=== PATIENT | female | born 1985 | race Caucasian/White ===

== ENCOUNTER 2022-12-22 13:16 | Emergency (ER) | payer OTHER, SELFPAY ==
[2022-12-22 13:21] VITALS: BP 116/83; PULSE 90; RESP 16; TEMP 36.7; O2SAT 98; BMI 39.1
--- NOTE | 2022-12-22 13:39 | ED.BACK1 ---
HPI - Back Pain/Injury General Chief Complaint: Back Pain/Injury Stated Complaint: BACK PAIN Time Seen by Provider: 12/22/22 13:23 Source: patient Mode of arrival: walk-in History of Present Illness HPI Narrative: for 3 months the patient has been experiencing pain in the lower right back. 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 Yesterday she developed a red rash to the right lower back and the pain became more of a burning sensation in the area of the rash, which is a new sensation for her. no fever or chills and no recent URI. She denied any bowel or bladder dysfunction. No lower extremity numbness or tingling. No leg weakness or imbalance. Related Data Previous Rx's Medication Instructions Recorded acyclovir 800 mg tablet 800 mg PO Q4H #35 tabs 12/22/22 nabumetone 750 mg tablet 750 mg PO BID PRN pain #20 tabs 12/22/22 prednisone 20 mg tablet 40 mg PO DAILY 5 days #10 tabs 12/22/22 Allergies Allergy/AdvReac Type Severity Reaction Status Date / Time acetaminophen [From Tylenol] Allergy Severe Verified 12/22/22 13:21 aspirin Allergy Severe Verified 12/22/22 13:21 codeine Allergy Severe Verified 12/22/22 13:21 morphine Allergy Severe Verified 12/22/22 13:21 Exam Narrative Exam Narrative: afebrile General: Alert, no acute distress, patient resting comfortably Skin: warm, intact, no pallor noted. Erythematous rash to the right lower parathoracic soft tissue that is very tender to touch. No vesicles at this time. Head: Normocephalic, atraumatic Eye: Normal conjunctiva Respiratory: No acute distress Back: inspection of the back shows no obvious deformity, no swelling, no ecchymosis, contusion, abrasion, swelling, erythema, fluctuance or induration. Tenderness noted to right parathoracic soft tissue and upper right paralumbar soft tissue. Straight leg raise on left is positive. Straight leg raise on right is negative. No CVA tenderness noted bilaterally. Musculoskeletal: No deformity noted to bilateral lower extremities. no cyanosis or mottling noted. normal pulses at DP and PT 2+ bilaterally and symmetrically. Normal 5/5 strength at ankles with dorsiflexion and plantar flexion. Patient is able to ambulate. Normal sensation noted to both lower extremities. Neurological: AAOx4, normal sensory and motor observed. L5-S1 reflexes intact symmetrically. DTR 2+ at patellar bilaterally. Psychiatric: Cooperative and interactive. Constitutional Vital Signs, click to edit/add: Last Vital Signs Temp 98.0 F 12/22/22 13:21 Pulse 90 12/22/22 13:21 Resp 16 12/22/22 13:21 BP 116/83 12/22/22 13:21 Pulse Ox 98 12/22/22 13:21 O2 Del Method Room Air 12/22/22 13:21 Course Vital Signs Vital signs: Vital Signs Temperature 98.0 F 12/22/22 13:21 Pulse Rate 90 12/22/22 13:21 Respiratory Rate 16 12/22/22 13:21 Blood Pressure 116/83 12/22/22 13:21 Pulse Oximetry 98 12/22/22 13:21 Oxygen Delivery Method Room Air 12/22/22 13:21 Temperature 98.0 F 12/22/22 13:21 Pulse Rate 90 12/22/22 13:21 Respiratory Rate 16 12/22/22 13:21 Blood Pressure 116/83 12/22/22 13:21 Pulse Oximetry 98 12/22/22 13:21 Oxygen Delivery Method Room Air 12/22/22 13:21 MDM - Back Pain/Injury MDM Narrative Medical decision making narrative: the patient has two issues - acute on chronic low back pain from a strain of the musculature of the right lower thoracic and upper right lumbar spine, which is exacerbated by her activity and lifting. Additionally, she is starting to develop a zoster rash which is causing the burning pain she now experiences in the lower right thoracic soft tissue. Patient given IM Toradol and IM Solumedrol in the ED. She was discharged home with prescriptions for acyclovir, relafen and prednisone. She was cautioned regarding exposure to others during patient care. PCP follow up recommended. Discharge Plan Discharge Chief Complaint: Back Pain/Injury Clinical Impression: Strain of thoracic spine, Strain of lumbar region, Herpes zoster Patient Disposition: Home, Self-Care Time of Disposition Decision: 13:50 Prescriptions / Home Meds: New acyclovir 800 mg tablet 800 mg PO Q4H Qty: 35 0RF Rx Instructions: while awake; give 5 doses in 24 hours nabumetone 750 mg tablet 750 mg PO BID PRN (Reason: pain) Qty: 20 0RF prednisone 20 mg tablet 40 mg PO DAILY 5 Days Qty: 10 0RF Instructions: Shingles (ED), Low Back Strain (ED), Back Pain (ED), P.R.I.C.E. Treatment (ED), Lower Back Exercises (ED), Thoracic Back Strain (ED) Stand Alone Forms: Portal Instructions Referrals: Physician,Non-Staff, MD [Primary Care Provider] - 1 week RACHEL MCFARLAND APRN [Physician] - 1 week
[2022-12-22] MEDS: METHYLPREDNISOLONE SOD SUCC PF 125 MG/2 ML VIAL IM (13:47)
[2022-12-22] MEDS: KETOROLAC TROMETHAMINE 60 MG/2 ML VIAL IM (13:47)
== END 2022-12-22 14:05 | disposition home or self-care (01) ==
PROVIDERS: Emergency Provider Emergency Medicine
DX: B02.9 Zoster without complications (principal); S29.012A Strain of muscle and tendon of back wall of thorax, initial encounter; S39.012A Strain of muscle, fascia and tendon of lower back, initial encounter; X50.9XXA Other and unspecified overexertion or strenuous movements or postures, initial encounter
CPT/HCPCS: 96372; 99284; J2930

== ENCOUNTER 2025-03-05 11:58 | Emergency (ER) | payer OTHER, SELFPAY ==
[2025-03-05 12:04] VITALS: BP 130/97; PULSE 79; TEMP 36.6; O2SAT 98; BMI 37.2
--- NOTE | 2025-03-05 12:21 | CT_ITS ---
The [address] [address] Patient Name: SLIME DIAMOND MRN: [id number] date: 1985 Sex: F Assigned Patient Location: ER Current Patient Location: [facility] Accession/Order Number: [id number] Exam Date: 03/05/2025 12:34 Report Date: 03/05/2025 13:16 At the request of: ANA M RUBIN MD Procedure: CT abdomen pelvis wo con CT abdomen pelvis wo con 03/05/2025 12:38 PM SIGNS AND SYMPTOMS: ^RLQ pain, nausea TECHNIQUE: Multidetector ct axial images of the abdomen and pelvis were obtained without IV contrast. Multiplanar reformats were performed and reviewed to further define anatomy and possible pathology. CT was performed with one or more of the following dose reduction techniques: Automated exposure control, adjustment of the mA and/or kV according to patient size, or use of iterative reconstruction technique. COMPARISON: 08/27/2020 FINDINGS: Lower Chest: Within normal limits. ABDOMEN: Liver: Within normal limits. Bile Ducts: Normal caliber. Gallbladder: Previously removed Pancreas: Within normal limits. Spleen: Within normal limits. Adrenals: Within normal limits. Kidneys: Within normal limits. Pelvis: Reproductive Organs: No pelvic masses. Ureters: Within normal limits. Bladder: Within normal limits. Bowel: Normal caliber. There is a normal appendix in the right lower quadrant. Mesenteric Lymph Nodes: No enlarged mesenteric lymph nodes. Peritoneum: No ascites or free air, no fluid collection. Vessels: Atherosclerotic changes are noted in the abdominal aorta. Retroperitoneum: Within normal limits. Abdominal Wall: Within normal limits. Bones: Bilateral L5 pars defects are present with grade 1 spondylolisthesis. Degenerative changes are noted in the thoracic spine. There is a levoconvex curvature of the lumbar spine. Degenerative changes in the sacroiliac joints. CT/CT abdomen pelvis wo con IMPRESSION: No bowel obstruction or obstructive uropathy. There is evidence of prior cholecystectomy. There is a normal appendix in the right lower quadrant. No acute intra-abdominal pathology. Impression dictated by: Baljinder Laguna M.D. 03/05/2025 1:16 PM Dictation Location: [place] [address] Electronically authenticated by: [id number] Y Date: 03/05/2025 13:16
[2025-03-05] MEDS: KETOROLAC TROMETHAMINE 30 MG/ML VIAL 15 MG IVP (12:30)
[2025-03-05 12:33] LABS: Hematocrit 45.2 % (36.0-48.0); Hemoglobin 15.5 g/dL (12.0-16.0); Immature Granulocytes Abs Auto 0.02 10^3/uL (0.00-0.03); Immature Granulocytes Pct Auto 0.2 % (0.0-0.5); Lymphocytes Absolute Auto 3.3 10^3/uL (1.2-3.8); Mean Corpuscular HGB Conc 34.3 g/dL (29.9-35.2); Mean Corpuscular Hemoglobin 30.0 pg (26.7-34.0); Mean Corpuscular Volume 87.6 fL (81.0-99.0); Platelet Count 193 10^3/uL (150-450); Red Blood Count 5.16 10^6/uL (4.20-5.40); White Blood Count 10.1 10^3/uL (4.0-11.0)
[2025-03-05 12:34] LABS: Glucose Urine UA NEGATIVE (NEGATIVE)
[2025-03-05 12:46] LABS: Alanine Aminotransferase 31 U/L (14-59); Albumin Globulin Ratio 1.0; Albumin Level 3.9 g/dL (3.4-5.0); Alkaline Phosphatase 102 U/L (46-116); Anion Gap 15.4; Aspartate Amino Transferase 20 U/L (15-37); Blood Urea Nitrogen 18.0 mg/dL (7.0-18.0); Calcium 9.3 mg/dL (8.5-10.1); Carbon Dioxide 26.7 mmol/L (21.0-32.0); Chloride 104 mmol/L (98-107); Estimated GFR (African America >60 (>=60 mL/min/1.73m^2); Estimated GFR (Non-African Ame >60 (>=60 mL/min/1.73m^2); Globulin 3.8 g/dL; Glucose 98 mg/dL (74-106); Potassium 4.1 mmol/L (3.5-5.1); Sodium 142 mmol/L (136-145); Total Protein 7.7 g/dL (6.4-8.2)
--- NOTE | 2025-03-05 13:53 | ED.ABDPAIN1 ---
HPI - Abdominal Pain General Chief Complaint: Abdominal Pain Stated Complaint: FEVER, SIDE PAIN Time Seen by Provider: 03/05/25 12:17 Source: patient Mode of arrival: walk-in Limitations: no limitations History of Present Illness HPI narrative: The patient presented to the ER with chills as well as right lower quadrant pain associated with some nausea for the last 24 hours. No vomiting or change in bowel movement Patient have no history of surgeries She did not take anything [id number] for the pain She mentioned that the pain is continuous and not episodic and not radiating although sometimes she would feel the pain in the back as well No burning with urination Related Data Home Medications ?Medication ?Instructions ?Recorded ?Confirmed rosuvastatin 10 mg tablet 10 mg PO DAILY 03/05/25 03/05/25 Allergies Allergy/AdvReac Type Severity Reaction Status Date / Time acetaminophen (From Tylenol) Allergy Severe Rash Verified 03/05/25 12:04 aspirin Allergy Severe Rash Verified 03/05/25 12:04 codeine Allergy Severe Hives Verified 03/05/25 12:04 morphine Allergy Severe Rash Verified 03/05/25 12:04 Review of Systems ROS Status of ROS 10 or more systems reviewed and unremarkable except as noted in history and below PFSH PFSH Social History Little interest or pleasure in doing things: not at all Feeling down, depressed, or hopeless: not at all Exam Narrative Exam Narrative: Nurses notes and vital signs reviewed and patient is not hypoxic. General: Well-appearing and in no apparent distress. Skin: Warm, dry, no pallor noted. No rash. Head: Normocephalic, atraumatic. Neck: Supple, non-tender. Eye: Pupils are equal, round and EOMI. No scleral icterus. Cardiovascular: Regular Rate and Rhythm without murmur, gallop or rub. Respiratory: No accessory muscle use or respiratory distress. Lungs are clear to auscultation, no wheezing, rales or rhonchi Chest Wall: no tenderness Back: No midline thoracic or lumbar vertebral tenderness. No CVA tenderness Musculoskeletal: normal ROM, no calf or popliteal tenderness, no lower extremity edema/swelling GI: Abdomen is soft, non-distended. Normal bowel sounds. Right lower quadrant tenderness. Neurological: A&O x4. No cranial nerve dysfunction observed. No truncal ataxia. Moves all extremities. Sensation intact. Psychiatric: Cooperative and interactive. Normal mood and affect. Constitutional Vital Signs, click to edit/add: Last Vital Signs Temp 98 F 03/05/25 12:04 Pulse 84 03/05/25 14:00 Resp 16 03/05/25 14:00 BP 110/70 03/05/25 14:00 Pulse Ox 100 03/05/25 14:00 O2 Del Method Room Air 03/05/25 14:00 Course Vital Signs Vital signs: Vital Signs Temperature 98 F 03/05/25 12:04 Pulse Rate 79 03/05/25 12:04 Respiratory Rate 16 03/05/25 12:04 Blood Pressure 130/97 H 03/05/25 12:04 Pulse Oximetry 98 03/05/25 12:04 Temperature 98 F 03/05/25 12:04 Pulse Rate 84 03/05/25 14:00 Respiratory Rate 16 03/05/25 14:00 Blood Pressure 110/70 03/05/25 14:00 Pulse Oximetry 100 03/05/25 14:00 Oxygen Delivery Method Room Air 03/05/25 14:00 MDM - Abdominal Pain MDM Narrative Medical decision making narrative: History of the right lower quadrant tenderness associated with the nausea and the chills was concerning for possible appendicitis Urinalysis showed no acute pathology with a negative test CBC and chemistry was within normal The patient CAT scan abdomen pelvis showed no acute pathology Right now just supportive care possible viral illness The patient to follow-up with the primary care within 2 to 3 days and to come back to the ER in case of any worsening of the current symptoms or any new symptoms or concerns Lab Data Labs: Lab Results 03/05/25 03/05/25 Range/Units 12:15 12:25 WBC 10.1 (4.0-11.0) 10^3/uL RBC 5.16 (4.20-5.40) 10^6/uL Hgb 15.5 (12.0-16.0) g/dL Hct 45.2 (36.0-48.0) % MCV 87.6 (81.0-99.0) fL MCH 30.0 (26.7-34.0) pg MCHC 34.3 (29.9-35.2) g/dL RDW 11.9 (11.0-15.0) % Plt Count 193 (150-450) 10^3/uL MPV 11.4 (9.5-13.5) fL Neut % (Auto) 59.1 (43.0-75.0) % Lymph % (Auto) 32.4 (20.5-60.0) % [place] % (Auto) 5.0 (1.7-12.0) % Eos % (Auto) 2.6 (0.9-7.0) % Baso % (Auto) 0.7 (0.2-2.0) % Neut # (Auto) 6.0 (1.4-6.5) 10^3/uL Lymph # (Auto) 3.3 (1.2-3.8) 10^3/uL [place] # (Auto) 0.5 (0.3-0.8) 10^3/uL Eos # (Auto) 0.3 (0.0-0.7) 10^3/uL Baso # (Auto) 0.1 (0.0-0.1) 10^3/uL Abs Immat Gran (auto) 0.02 (0.00-0.03) 10^3/uL Imm/Tot Granulo (auto) 0.2 (0.0-0.5) % Sodium 142 (136-145) mmol/L Potassium 4.1 (3.5-5.1) mmol/L Chloride 104 (98-107) mmol/L Carbon Dioxide 26.7 (21.0-32.0) mmol/L Anion Gap 15.4 BUN 18.0 (7.0-18.0) mg/dL Creatinine 0.87 (0.55-1.02) mg/dL Est GFR ( Amer) >60 (>=60 mL/min/1.73m^2) Est GFR (Non-Af Amer) >60 (>=60 mL/min/1.73m^2) BUN/Creatinine Ratio 20.7 Glucose 98 (74-106) mg/dL Calcium 9.3 (8.5-10.1) mg/dL Total Bilirubin 0.4 (0.2-1.0) mg/dL AST 20 (15-37) U/L ALT 31 (14-59) U/L Alkaline Phosphatase 102 (46-116) U/L Total Protein 7.7 (6.4-8.2) g/dL Albumin 3.9 (3.4-5.0) g/dL Globulin 3.8 g/dL Albumin/Globulin Ratio 1.0 Serum HCG, Qual Negative (NEGATIVE) Urine Color Yellow (YELLOW) Urine Clarity Clear (CLEAR) Urine pH 5.5 (5.0-9.0) Ur Specific [place] 1.020 (1.005-1.025) Urine Protein Negative (NEG/TRACE) mg/dL Urine Glucose (UA) Negative (NEGATIVE) mg/dL Urine Ketones Negative (NEGATIVE) mg/dL Urine Occult Blood Negative (NEGATIVE) Urine Nitrite Negative (NEGATIVE) Urine Bilirubin Negative (NEGATIVE) Urine Urobilinogen 0.2 (0.2-1.0) EU/dL Ur Leukocyte Esterase Negative (NEGATIVE) Discharge Plan Discharge Chief Complaint: Abdominal Pain Clinical Impression: Abdominal pain Patient Disposition: Home, Self-Care Time of Disposition Decision: 13:53 Condition: Good Prescriptions / Home Meds: No Action rosuvastatin 10 mg tablet 10 mg PO DAILY Print Language: Czech Instructions: Abdominal Pain (ED) Referrals: [facility] [Primary Care Provider, Unknown] - 1 week Discharge Date/Time: 03/05/25 14:04
[2025-03-05 14:00] VITALS: BP 110/70; PULSE 84; O2SAT 100
== END 2025-03-05 14:04 | disposition home or self-care (01) ==
PROVIDERS: Emergency Provider Emergency Medicine
DX: R10.31 Right lower quadrant pain (principal)
CPT/HCPCS: 36415; 74176; 80053; 81003; 84703; 85025; 96374; 96375; 99284; J1885; J2405